=== PATIENT | male | born 2000 | race Caucasian/White ===

== ENCOUNTER 2021-07-10 22:15 | Emergency (ER) | payer OTHER ==
[~2021-07-10 22:15] MED LIST: NORCO 5-325 TA1 EACH PO
[2021-07-10 23:06] LABS: HEMOGLOBIN 16.2 gm/dl (14.0-17.5); RED BLOOD COUNT 5.48 M/UL (4.20-5.50); WHITE BLOOD COUNT 9.5 K/UL (4.5-11.0)
[2021-07-10 23:27] LABS: BUN/CREATININE RATIO 14 (0-10)
== END 2021-07-11 01:37 | disposition home or self-care (01) ==
LOC: ER1 22:15
PROVIDERS: Physician Assistant
DX: R10.9 Unspecified abdominal pain (principal); M54.50 Low back pain, unspecified; F17.210 Nicotine dependence, cigarettes, uncomplicated
CPT/HCPCS: 80053; 81001; 83690; 85025; 87086; 99284; J1885

== ENCOUNTER 2021-07-14 00:06 | Emergency (ER) | payer OTHER | END 2021-07-14 03:30 | disposition left against medical advice (07) | LOC: ER1 00:06 | DX: M54.50 Low back pain, unspecified (principal); F17.210 Nicotine dependence, cigarettes, uncomplicated | CPT/HCPCS: 99283 ==